=== PATIENT | female | born 1945 | race Caucasian/White ===

== ENCOUNTER 2017-12-17 10:33 | Emergency (ER) | payer OTHER, MEDICARE ==
[~2017-12-17] VITALS: Ht 158.8 cm; Wt 63.5 kg
--- NOTE | 2017-12-17 11:13 | ED GI/GU/ABDOMINAL COMPLAINT ---
History of Present Illness General Chief Complaint: Abdominal Pain/Flank Pain Stated Complaint: LOWER ABD PAIN, X 12 HRS Source: patient Exam Limitations: no limitations Vital Signs & Intake/Output Vital Signs & Intake/Output Vital Signs Date Time Temp Pulse Resp B/P B/P Pulse O2 O2 Flow FiO2 Mean Ox Delivery Rate 12/17 1301 97.6 80 18 193/83 98 Room Air 12/17 1046 98.3 94 20 195/97 97 Room Air Allergies Coded Allergies: Penicillins (Mild, RASH 12/17/17) Reconcile Medications Ciprofloxacin HCl (Cipro) 500 MG TABLET 1 TAB PO BID diverticulitis Hyoscyamine (Levsin) 0.125 MG TABLET 1-2 TAB PO Q6P PRN ABDOMINAL CRAMPS Metronidazole (Flagyl) 500 MG TABLET 1 TAB PO Q6 DIVERTICULITIS Tramadol HCl (Ultram) 50 MG TABLET 1-2 TAB PO Q6P PRN PAIN Triage Note: TRIAGE: PT TO ER C/C LOW ABD PRESSURE, ONSET YESTERDAY, CONSTANT SINCE ONSET THOUGH WAXES/WANES IN INTENSITY. -N/V, +DIARRHEA X 1 EPISODE YESTERDAY. -URINARY S/S. REPORTS ALSO FEELS ABDOMINAL SWELLING. AUTO B/P 195/97 AT TRIAGE. MANUAL B/P 180/78 AT TRIAGE BUT PATIENT TOOK OWN LIQUID MEDICINE "HTN/STRESS TINCTURE" FROM NATUROPATHIC DOCTOR AT TRIAGE BEFORE SHE COULD BE ADVISED NOT TO TAKE HER OWN MEDICATIONS WITHOUT FIRST SEEING ER MD. Triage Nurses Notes Reviewed? yes ? n Is pt currently ? No HPI: Patient presents for evaluation of a sharp stabbing gas-like lower abdominal pain bilaterally that began gradually yesterday afternoon. Patient states the pain is an intermittent pain that occurs every 20-60 minutes and lasts for a few minutes at a time. The patient denies any fever, cold symptoms, diarrhea, vomiting bright red rectal bleeding, melena or dysuria. She states that she does have back pain episodes that are unrelated to this abdominal pain. The pain seems to worsen with bowel movements. Ultimately the patient admitted that she has had episodes like this although much more mild beginning a few months ago. Past History Travel History Traveled to [place] past 21 day No Medical History Any Pertinent Medical History? 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 No Review of Systems Review of Systems Constitutional: Reports: no symptoms. EENTM: Reports: no symptoms. Respiratory: Reports: no symptoms. Cardiovascular: Reports: no symptoms. GI: Reports: see HPI. Genitourinary: Reports: no symptoms. Musculoskeletal: Reports: no symptoms. Skin: Reports: no symptoms. Neurological/Psychological: Reports: no symptoms. Hematologic/Endocrine: Reports: no symptoms. Immunologic/Allergic: Reports: no symptoms. All Other Systems: Reviewed and Negative Physical Exam Physical Exam Gastrointestinal: SEE BELOW Comments: Gen.: Well-nourished, well-developed, no acute respiratory distress. Head: Normocephalic, atraumatic. Eyes: Normal inspection bilaterally Ears: Normal inspection bilaterally Nose: Normal inspection Throat/mouth : Moist mucosa Neck: Supple, full range of motion, no goiter Heart: Regular rate and rhythm, no murmurs rubs or gallops Lungs: Clear to auscultation bilaterally with normal air entry Chest: Nontender Back: Normal range of motion Abdomen: Soft, mild bilateral lower abdominal tenderness without rebound or guarding, nondistended, hyperactive bowel sounds Extremities: Normal range of motion grossly, equal radial pulses, no cyanosis clubbing or edema Neurologic: Cranial nerves grossly intact, speech is clear Skin: warm and dry Psychiatric: Calm, cooperative, no apparent delusions or hallucinations Core Measures ACS in differential dx? No Sepsis Present: No Sepsis Focused Exam Completed? No Progress Differential Diagnosis: appendicitis, bowel obstruction, diverticulitis, ischemic bowel, inflamm bowel dis Plan of Care: Orders Procedure Date/time Status URINALYSIS 12/17 1112 Complete LIPASE 12/17 1112 Complete COMPREHENSIVE METABOLIC PANEL 12/17 1112 Complete CBC WITHOUT DIFFERENTIAL 12/17 1112 Complete EKG 12/17 1036 Active Current Medications Sig/Yesy Start time Last Medication Dose Stop Time Status Admin Ciprofloxacin 500 MG ONCE ONE 12/17 1330 AC (Cipro) 12/17 1331 Hyoscyamine 0.125 MG ONCE ONE 12/17 1330 AC (Levsin) 12/17 1331 Metronidazole 500 MG ONCE ONE 12/17 1330 AC (Flagyl) 12/17 1331 Laboratory Tests 12/17/17 1119: Anion Gap 11, Estimated GFR > 60, BUN/Creatinine Ratio 20.0, Glucose 119 H, Calcium 9.8, Total Bilirubin 0.8, AST 23, ALT 24, Alkaline Phosphatase 89, Total Protein 7.8, Albumin 4.3, Globulin 3.5, Albumin/Globulin Ratio 1.2, Lipase 58, CBC w Diff NO MAN DIFF REQ, RBC 4.25, MCV 96.5, MCH 32.4 H, MCHC 33.6, RDW 12.3 , MPV 7.4, Gran % 84.3 H, Lymphocytes % 9.4 L, Monocytes % 5.6, Eosinophils % 0.4, Basophils % 0.3, Absolute Granulocytes 8.2 H, Absolute Lymphocytes 0.9 L, Absolute Monocytes 0.5, Absolute Eosinophils 0, Absolute Basophils 0, Urine Color YEL, Urine Clarity CLEAR, Urine pH 6.0, Ur Specific [place] <= 1.005, Urine Protein NEG, Urine Ketones NEG, Urine Nitrite NEG, Urine Bilirubin NEG, Urine Urobilinogen 0.2, Ur Leukocyte Esterase NEG, Ur Microscopic SEDIMENT EXAMINED, Urine RBC RARE, Urine WBC RARE, Ur Epithelial Cells RARE, Urine Hemoglobin TRACE-INTACT, Urine Glucose NEG Diagnostic Imaging: Discussed w/RAD: CT Scan. Radiology Impression: PATIENT: LINDSEY MANCIA PRESENT AGE: 72 PATIENT ACCOUNT NO: [id number] : 47 LOCATION: [facility] ORDERING PHYSICIAN: Michael Auguste MD SERVICE DATE: 12/17/17 EXAM TYPE: CAT - CT ABD & PELVIS W IV CONTRAST EXAMINATION: CT ABDOMEN AND PELVIS WITH CONTRAST CLINICAL INFORMATION: Bilateral lower abdominal pain/cramps. Presumptive diagnosis of diverticulitis, colitis, focal bowel obstruction. COMPARISON: None. TECHNIQUE: Multidetector CT volumetric acquisition of the abdomen and pelvis was performed after the administration of 85 mL of intravenous Optiray 320. The data set was reformatted in the sagittal and coronal planes and reviewed on an independent workstation. DLP: 240.15 mGy-cm. FINDINGS: LOWER CHEST: There is a 5 mm solid noncalcified right lower lobe nodule based upon the right minor fissure , most consistent with a perifissural lymph node. Minimal atelectatic changes as seen inferiorly in the right middle lobe and lingula. LIVER, GALLBLADDER, BILIARY TREE: Liver normal size and attenuation. No focal cystic or solid mass or intra-or extrahepatic ductal dilatation. Hepatic and portal veins patent. Small calcified gallstone is seen within the dependent portion of the gallbladder. Gallbladder is partially distended and unremarkable. No evidence of acute cholecystitis or biliary obstruction. PANCREAS: Normal. No ductal dilatation, mass, or surrounding stranding. SPLEEN: Normal size and appearance. Splenic vein patent. ADRENAL GLANDS AND KIDNEYS: Adrenal glands normal. Kidneys bilaterally symmetric in size and function. No focal mass, hydronephrosis, nephrolithiasis or perinephric stranding. URETERS AND BLADDER: Ureters decompressed and within normal limits. Bladder partially distended and within normal limits. PELVIC ORGANS: Unremarkable. GASTROINTESTINAL TRACT: There is moderate sigmoid colonic diverticulosis. There is a small amount of surrounding fat infiltration and edema seen surrounding the distal sigmoid colon (series 2, image 63), consistent with mild acute segmental distal sigmoid colonic diverticulitis. No evidence for microperforation, free air, or focal abscess formation is seen. Small and large bowel loops remain decompressed and otherwise unremarkable. Appendix is partially visualized and appears normal to the extent seen. LYMPHOVASCULAR STRUCTURES: Abdominal aorta normal in caliber. No periaortic collections. There is diffuse moderate to severe atherosclerotic calcification of the aorta and branch vessels, including both renal arteries and the origins of the SMA and celiac axis. No abdominal or pelvic adenopathy. BONES : There is moderate vertebral spondylosis and degenerative disc disease at the lumbosacral junction. Mild disc space narrowing and spurring is also seen at L3- L4. Remainder of disc space height relatively well-maintained at all levels. Moderate facet arthropathy seen in the mid and lower lumbar spine. No suspicious bone findings. IMPRESSION: 1. Findings are consistent with acute segmental distal sigmoid colonic diverticulitis with small amount of surrounding mesenteric inflammation. No evidence of microperforation or focal abscess formation. Follow-up imaging post treatment is recommended to document resolution of findings. 2. Cholelithiasis with no evidence of acute cholecystitis or biliary obstruction. 3. Moderate to severe atherosclerotic disease of the abdominal aorta and branch vessels. DICTATED BY: Anne BALL,Halima Ramirez DATE/TIME DICTATED:12/17/178 NURSE INTERN:OSITO DATE/TIME TRANSCRIBED:12/17/17 / 1238 CONFIDENTIAL, DO NOT COPY WITHOUT APPROPRIATE AUTHORIZATION. <Electronically signed in Other Vendor System> SIGNED BY: Halima Rodríguez MD 12/17/17 1300 Initial ED EKG: NSR, no ST T wave changes Departure Departure Disposition: STILL A PATIENT Condition: Stable Clinical Impression Primary Impression: Diverticulitis Additional Instructions: Cipro and Flagyl as prescribed for your diverticulitis. Levsin as needed for pain. You may add tramadol if necessary for pain. Follow-up with your primary care physician in 72 hours if not improving. Return if any concerns or sudden worsening. Please note that there might be incidental findings in your evaluation that are unrelated to the current emergency department visit. Please notify your primary care doctor about this emergency department visit in order to obtain and review all of the testing performed so that these incidental findings can be monitored as needed. If you had an x-ray performed, please understand that some fractures or other findings may not be seen on the initial set of x-rays. If your symptoms persist you might need a repeat set of x-rays to check for such a fracture. If you're unable to follow up as outlined in the discharge instructions please return to the emergency department. Thank you for choosing the [facility] Emergency Department for your care. It was a pleasure to serve you today. Michael Auguste M.D. [facility] Departure Forms: Customer Survey General Discharge Information Prescriptions: Current Visit Scripts Ciprofloxacin HCl (Cipro) 1 TAB PO BID #20 TAB Metronidazole (Flagyl) 1 TAB PO Q6 #40 TAB Hyoscyamine (Levsin) 1-2 TAB PO Q6P PRN ABDOMINAL CRAMPS #20 TAB Tramadol HCl (Ultram) 1-2 TAB PO Q6P PRN PAIN #20 TAB
[2017-12-17 11:36] LABS: ABSOLUTE BASOPHIL COUNT 0 /CUMM (0.0-0.2); ABSOLUTE EOSINOPHIL COUNT 0 /CUMM (0.0-0.7); ABSOLUTE GRANULOCYTE CT 8.2 /CUMM (1.4-6.5); ABSOLUTE LYMPH COUNT 0.9 /CUMM (1.2-3.4); ABSOLUTE MONOCYTE COUNT 0.5 /CUMM (0.10-0.60); BASOPHIL % 0.3 % (0.0-2.0); EOSINOPHIL % 0.4 % (0-5); MEAN CORPUSCULAR HGB 32.4 PG (27.0-31.0); MEAN CORPUSCULAR HGB CONC 33.6 G/DL (33.0-37.0); MEAN CORPUSCULAR VOLUME 96.5 FL (81.0-99.0); MEAN PLATELET VOLUME 7.4 FL (7.4-10.4); PLATELET COUNT 278 /CUMM (130-400); RBC DISTRIBUTION WIDTH 12.3 % (11.5-14.5); RED BLOOD CELL CT 4.25 /CUMM (4.20-5.40); WHITE BLOOD CELL COUNT 9.8 /CUMM (4.8-10.8)
[2017-12-17 12:01] LABS: GRANULOCYTE % 84.3 % (42.2-75.2)
--- NOTE | 2017-12-17 13:00 | CT SCAN REPORT ---
EXAMINATION: CT ABDOMEN AND PELVIS WITH CONTRAST CLINICAL INFORMATION: Bilateral lower abdominal pain/cramps. Presumptive diagnosis of diverticulitis, colitis, focal bowel obstruction. COMPARISON: None. TECHNIQUE: Multidetector CT volumetric acquisition of the abdomen and pelvis was performed after the administration of 85 mL of intravenous Optiray 320. The data set was reformatted in the sagittal and coronal planes and reviewed on an independent workstation. DLP: 240.15 mGy-cm. FINDINGS: LOWER CHEST: There is a 5 mm solid noncalcified right lower lobe nodule based upon the right minor fissure, most consistent with a perifissural lymph node. Minimal atelectatic changes as seen inferiorly in the right middle lobe and lingula. LIVER, GALLBLADDER, BILIARY TREE: Liver normal size and attenuation. No focal cystic or solid mass or intra-or extrahepatic ductal dilatation. Hepatic and portal veins patent. Small calcified gallstone is seen within the dependent portion of the gallbladder. Gallbladder is partially distended and unremarkable. No evidence of acute cholecystitis or biliary obstruction. PANCREAS: Normal. No ductal dilatation, mass, or surrounding stranding. SPLEEN: Normal size and appearance. Splenic vein patent. ADRENAL GLANDS AND KIDNEYS: Adrenal glands normal. Kidneys bilaterally symmetric in size and function. No focal mass, hydronephrosis, nephrolithiasis or perinephric stranding. URETERS AND BLADDER: Ureters decompressed and within normal limits. Bladder partially distended and within normal limits. PELVIC ORGANS: Unremarkable. GASTROINTESTINAL TRACT: There is moderate sigmoid colonic diverticulosis. There is a small amount of surrounding fat infiltration and edema seen surrounding the distal sigmoid colon (series 2, image 63), consistent with mild acute segmental distal sigmoid colonic diverticulitis. No evidence for microperforation, free air, or focal abscess formation is seen. Small and large bowel loops remain decompressed and otherwise unremarkable. Appendix is partially visualized and appears normal to the extent seen. LYMPHOVASCULAR STRUCTURES: Abdominal aorta normal in caliber. No periaortic collections. There is diffuse moderate to severe atherosclerotic calcification of the aorta and branch vessels, including both renal arteries and the origins of the SMA and celiac axis. No abdominal or pelvic adenopathy. BONES: There is moderate vertebral spondylosis and degenerative disc disease at the lumbosacral junction. Mild disc space narrowing and spurring is also seen at L3-L4. Remainder of disc space height relatively well-maintained at all levels. Moderate facet arthropathy seen in the mid and lower lumbar spine. No suspicious bone findings. IMPRESSION: 1. Findings are consistent with acute segmental distal sigmoid colonic diverticulitis with small amount of surrounding mesenteric inflammation. No evidence of microperforation or focal abscess formation. Follow-up imaging post treatment is recommended to document resolution of findings. 2. Cholelithiasis with no evidence of acute cholecystitis or biliary obstruction. 3. Moderate to severe atherosclerotic disease of the abdominal aorta and branch vessels.
[2017-12-17 13:01] VITALS: BP 193/83
[2017-12-17] MEDS ORDERED: LEVSIN0.125 M1 PO (13:18)
[2017-12-17] MEDS ORDERED: FLAGYL500 MG PO (13:18)
[2017-12-17] MEDS ORDERED: CIPRO500 M1 PO (13:18)
[2017-12-17] MEDS ORDERED: ULTRAM50 M1 PO (13:18)
== END 2017-12-17 13:27 ==
LOC: ERH 10:33
PROVIDERS: Emergency Medicine
DX: K57.92 Diverticulitis of intestine, part unspecified, without perforation or abscess without bleeding (principal)
CPT/HCPCS: 74177; 81001; 93005; 93010